=== PATIENT | male | born 1970 | race Caucasian/White ===

== ENCOUNTER 2021-07-11 12:26 | Inpatient (IN) | payer OTHER ==
[2021-07-11] MEDS ORDERED: cloNIDine HCL 0.1 MG TABLET PO PRN (14:52)
[2021-07-11] MEDS ORDERED: hydrOXYzine PAMOATE 25 MG CAPSULE (FP) PO PRN (14:52)
[2021-07-11] MEDS ORDERED: METHOCARBAMOL 500 MG TABLET PO PRN (14:52)
[2021-07-11] MEDS ORDERED: DICYCLOMINE HCL 10 MG CAPSULE PO PRN (14:52)
[2021-07-11] MEDS ORDERED: NICOTINE 10 MG CARTRIDGE (INHALER) IH PRN (14:52)
[2021-07-11] MEDS ORDERED: IBUPROFEN 400 MG TABLET (FP) PO PRN (14:52)
[2021-07-11] MEDS ORDERED: MAG HYDROX/AL HYDROX/SIMETH 30 ML UNIT-DOSE CUP PO PRN (14:52)
[2021-07-11] MEDS ORDERED: MAGNESIUM CITRATE 300 ML BOTTLE PO PRN (14:52)
[2021-07-11] MEDS ORDERED: BISMUTH SUBSALICYLATE 524 MG/30 ML PO PRN (14:52)
[2021-07-11] MEDS ORDERED: NICOTINE POLACRILEX 4 MG GUM BUC PRN (14:52)
[2021-07-11] MEDS ORDERED: NALOXONE (NARCAN) HCL 4 MG/0.1 ML SPRAY NS PRN (14:52)
[2021-07-11] MEDS ORDERED: ONDANSETRON *ODT* 4 MG TABLET SL PRN (14:52)
[2021-07-11] MEDS ORDERED: ACETAMINOPHEN 325 MG TABLET (FP) PO PRN ×2 (14:52)
[2021-07-11] MEDS ORDERED: MENTHOL/PHENOL 1 EACH UD MM PRN (14:52)
[2021-07-11] MEDS ORDERED: MAGNESIUM HYDROX 2400MG/30ML ORAL SUSPENSION 30 ML CUP PO PRN (14:52)
[2021-07-11] MEDS ORDERED: diazePAM 5 MG TABLET PO PRN (14:56)
[2021-07-11 15:58] VITALS: BMI 20.9
[2021-07-11] MEDS ORDERED: methaDONE HCL 10 MG TABLET (FOR DETOX USE ONLY) PO ONE (16:15)
[2021-07-11] MEDS ORDERED: THIAMINE HCL 100 MG TABLET (FP) PO SCH (22:00)
[2021-07-11] MEDS ORDERED: MELATONIN 5 MG TABLETS PO SCH (22:00)
[2021-07-12 06:37] VITALS: BP 123/73; PULSE 65; TEMP 98.2
[2021-07-12] MEDS ORDERED: NICOTINE 21 MG/24 HOURS TOPICAL PATCH TD SCH (10:00)
[2021-07-12] MEDS ORDERED: PRENATAL VITAMINS W/ FOLIC ACID TABLET (FP) PO SCH (10:00)
[2021-07-13] MEDS ORDERED: methaDONE HCL 10 MG TABLET (FOR DETOX USE ONLY) PO ONE (10:00)
[2021-07-15] MEDS ORDERED: methaDONE HCL 10 MG TABLET (FOR DETOX USE ONLY) PO ONE (10:00)
== END 2021-07-12 09:14 | disposition home or self-care (01) | DRG 773 ==
LOC: YASAS 12:26 → Y3N 16:03
PROVIDERS: ADMIT Allergy & Immunology; ATTEND Allergy & Immunology
PROC: HZ2ZZZZ Detoxification Services for Substance Abuse Treatment (ICD-10-PCS; principal; 2021-07-11)
DX: F11.23 Opioid dependence with withdrawal (principal); F14.20 Cocaine dependence, uncomplicated; F17.210 Nicotine dependence, cigarettes, uncomplicated; B18.2 Chronic viral hepatitis C; Z59.00 Homelessness unspecified
CPT/HCPCS: C9803; J0735; U0003; U0005

== ENCOUNTER 2023-08-13 21:18 | Inpatient (IN) | payer OTHER ==
[2023-08-13 22:55] VITALS: BMI 19.5
[2023-08-13] MEDS ORDERED: BENZONATATE 200 MG CAPSULE PO PRN (23:52)
[2023-08-13] MEDS ORDERED: ACETAMINOPHEN 325 MG TABLET (FP) PO PRN (23:52)
[2023-08-13] MEDS ORDERED: IBUPROFEN 400 MG TABLET (FP) PO PRN (23:52)
[2023-08-13] MEDS ORDERED: POLYETHYLENE GLYCOL (HEALTHYLAX) 3350 17 GM PACKET PO PRN (23:52)
[2023-08-13] MEDS ORDERED: P-EPHED 60MG/TRIPROLIDI 2.5MG TABLET PO PRN (23:52)
[2023-08-13] MEDS ORDERED: MAGNESIUM HYDROX 2400MG/30ML ORAL SUSPENSION 30 ML CUP PO PRN (23:52)
[2023-08-13] MEDS ORDERED: IBUPROFEN 600 MG TABLET (FP) PO PRN (23:52)
[2023-08-13] MEDS ORDERED: BISMUTH SUBSALICYLATE 524 MG/30 ML PO PRN (23:52)
[2023-08-13] MEDS ORDERED: NALOXONE HCL (KLOXXADO) 8 MG SPRAY NS PRN (23:52)
[2023-08-13] MEDS ORDERED: BENZOCAINE/MENTHOL (CHLORASEPTIC ) LOZENGE MM PRN (23:52)
[2023-08-13] MEDS ORDERED: NICOTINE POLACRILEX 2 MG GUM BUC PRN (23:52)
[2023-08-13] MEDS ORDERED: guaiFENesin 600 MG TABLET.ER (FP) PO PRN (23:52)
[2023-08-13] MEDS ORDERED: LOPERAMIDE HCL 2 MG CAPSULE PO PRN (23:52)
[2023-08-13] MEDS ORDERED: NALOXONE HCL 0.4 MG/ML VIAL IM PRN (23:52)
[2023-08-13] MEDS ORDERED: DICYCLOMINE HCL 10 MG CAPSULE PO PRN (23:52)
[2023-08-13] MEDS ORDERED: MAG HYDROX/AL HYDROX/SIMETH 30 ML UNIT-DOSE CUP PO PRN (23:52)
[2023-08-13] MEDS ORDERED: ONDANSETRON *ODT* 4 MG TABLET SL PRN (23:52)
[2023-08-14] MEDS: PRENATAL VITAMINS W/ FOLIC ACID TABLET (FP) PO SCH ×2 (10:31→10:46)
[2023-08-14] MEDS ORDERED: cloNIDine HCL 0.1 MG TABLET PO PRN (11:30)
[2023-08-14] MEDS ORDERED: methaDONE HCL 10 MG TABLET (FOR DETOX USE ONLY) PO ONE (11:30)
[2023-08-14] MEDS: METHOCARBAMOL 500 MG TABLET PO PRN ×2 (11:44→22:55)
[2023-08-14] MEDS: hydrOXYzine PAMOATE 25 MG CAPSULE (FP) PO PRN (11:44)
[2023-08-14 16:06] LABS: POTASSIUM 4.2 mmol/L (3.5-5.1)
[2023-08-14 16:09] LABS: HEMATOCRIT 39.7 % (35.4-49); HEMOGLOBIN 12.9 GM/dL (11.7-16.9); MCH 28.3 pg (25.7-33.7); MCHC 32.4 g/dl (32.0-35.9); MEAN CELL VOLUME 87.4 fl (80-96); MEAN PLT VOLUME 7.4 fl (7.5-11.1); PLATELET COUNT 203 10^3/uL (134-434); RBC 4.54 M/mm3 (4.00-5.60); RDW 13.9 % (11.9-15.9); WHITE BLOOD COUNT 7.4 K/mm3 (4.0-10.0)
[2023-08-14 16:17] LABS: CALCIUM 8.8 mg/dL (8.5-10.1)
[2023-08-14 16:18] LABS: ALBUMIN 3.5 g/dl (3.4-5.0); BLOOD UREA NITROGEN 9.7 mg/dL (7-18)
[2023-08-14 16:21] LABS: CREATININE 0.8 mg/dL (0.55-1.3)
[2023-08-14 16:22] LABS: TOT PROT 7.6 g/dl (6.4-8.2)
[2023-08-14 16:23] LABS: BILIRUBIN,TOTAL 0.4 mg/dL (0.2-1)
[2023-08-14] MEDS ORDERED: MELATONIN 5 MG TABLETS PO SCH (22:00)
[2023-08-14] MEDS ORDERED: THIAMINE HCL 100 MG TABLET (FP) PO SCH (22:00)
[2023-08-15] MEDS: hydrOXYzine PAMOATE 25 MG CAPSULE (FP) PO PRN (03:41)
[2023-08-15 06:58] VITALS: RESP 16
[2023-08-15 09:26] VITALS: BP 100/70; PULSE 60; TEMP 98.1
[2023-08-15] MEDS: PRENATAL VITAMINS W/ FOLIC ACID TABLET (FP) PO SCH (11:07)
[2023-08-16] MEDS ORDERED: methaDONE HCL 10 MG TABLET (FOR DETOX USE ONLY) PO ONE (10:00)
[2023-08-18] MEDS ORDERED: methaDONE HCL 10 MG TABLET (FOR DETOX USE ONLY) PO ONE (10:00)
== END 2023-08-15 09:39 | disposition short-term general hospital (02) | DRG 773 ==
LOC: YASAS 21:18 → Y3N 08-14 02:05 → UNDOADMIN 08-14 02:05 → UNDODISIN 08-15 09:39
PROVIDERS: ADMIT Allergy & Immunology; ATTEND Surgery
PROC: HZ2ZZZZ Detoxification Services for Substance Abuse Treatment (ICD-10-PCS; principal; 2023-08-14)
DX: F11.23 Opioid dependence with withdrawal (principal); F14.20 Cocaine dependence, uncomplicated; F12.10 Cannabis abuse, uncomplicated; F17.210 Nicotine dependence, cigarettes, uncomplicated; R40.4 Transient alteration of awareness; Z86.19 Personal history of other infectious and parasitic diseases; Z28.310 Unvaccinated for COVID-19; Z28.9 Immunization not carried out for unspecified reason
CPT/HCPCS: 36415; 80053; 82962; 85027; 86780; 87635; Q0162